=== PATIENT | female | born 1995 | race African-American/Black ===

== ENCOUNTER → 2021-01-11 | Outpatient (CLI) | payer OTHER ==
--- NOTE | 2021-01-11 13:35 | RAD ---
INDICATION: Reason: OLIGOMENORRHEA, ABNORMAL PAP / Spl. Instructions: / History: COMPARISON: None. TECHNIQUE: Grayscale and color ultrasound images uterus and adnexa. Transabdominal and transvaginal images obtained. Transvaginal images were needed to better visualize structures that were limited on transabdominal imaging. FINDINGS: Uterus: 75 x 42 x 31 mm. 4 mm endometrial stripe. Right Ovary: 30 x 26 x 15 mm. Left Ovary: 25 x 15 x 11 mm. Vascular flow identified to bilateral ovaries. Small free fluid in the pelvis. IMPRESSION: * Vascular flow seen to the ovaries. Electronically signed by: Devyn Hi MD (01/11/2021 1:33 PM) [id number]
== END ==
LOC: US 12:50
PROVIDERS: ATTEND Obstetrics & Gynecology
DX: N83.8 Other noninflammatory disorders of ovary, fallopian tube and broad ligament (principal); R87.612 Low grade squamous intraepithelial lesion on cytologic smear of cervix (LGSIL); N91.5 Oligomenorrhea, unspecified
CPT/HCPCS: 76830; 76856

== ENCOUNTER 2021-09-24 14:51 | Emergency (ER) | payer SELFPAY ==
[~2021-09-24] VITALS: Ht 162.6 cm; Wt 85.0 kg
[2021-09-24 14:51] VITALS: BP 144/88
--- NOTE | 2021-09-24 15:23 | PHYS DOC ---
General Adult EDM: Chief Complaint: DENTAL PROBLEM HPI: HPI: Patient is a 26-year-old female who presents with left, lower dental pain. Patient states that pain started a couple of days ago. Patient has not been taking anything at home for discomfort. No signs of swelling or trauma to the area. Patient states that she does not have a dentist. Pain is worse when she drinks and eats food. Patient is eating and drinking okay. Denies medical history. (GUME CEVALLOS APRN) Review of Systems: Review of Systems: ROS At least 10 ROS systems have been reviewed and are negative except as documented in the HPI. General: Negative except as outlined in HPI above. Skin: Negative except as outlined in HPI above. HEENT: Negative except as outlined in HPI above. Neck: Negative except as outlined in HPI above. Respiratory: Negative except as outlined in HPI above.. Cardiovascular: Negative except as outlined in HPI above. Abdomen: Negative except as outlined in HPI above. : Negative except as outlined in HPI above. Back/MSK: Negative except as outlined in HPI above. Neuro: Negative except as outlined in HPI above. Psych: Negative except as outlined in HPI above. (GUME CEVALLOS APRN) Current Medications: Current Meds: Current Medications Medications (Trade) Dose Ordered Sig/Sharlene Start Time Stop Time Status Last Admin Dose Admin Ibuprofen (Motrin) 600 mg 1X ONCE 09/24/21 15:15 09/24/21 15:16 UNV (GUME CEVALLOS APRN) Allergies: Allergies: Allergies Coded Allergies Type Severity Reaction Last Updated Verified No Known Drug Allergies 09/24/21 No (GUME CEVALLOS APRN) Physical Exam: PE: Constitutional: Well developed, well nourished, no acute distress, non-toxic appearance. [] HENT: bilateral external ears normal, oropharynx moist, no oral exudates, left, lower dental pain. No swelling. No signs of trauma. Eyes: PERRLA, EOMI, conjunctiva normal, no discharge. [] Neck: Normal range of motion, no tenderness, supple, no stridor. [] Cardiovascular:Heart rate regular rhythm, no murmur [] Lungs & Thorax: Bilateral breath sounds clear to auscultation [] Abdomen: Bowel sounds normal, soft, no tenderness, no masses, no pulsatile masses. [] Skin: Warm, dry, no erythema, no rash. [] Back: No tenderness, no CVA tenderness. [] Extremities: No tenderness, no cyanosis, no clubbing, ROM intact, no edema. [] Neurologic: Alert and oriented X 3, normal motor function, normal sensory function, no focal deficits noted. [] Psychologic: Affect normal, judgement normal, mood normal. [] (GUME CEVALLOS APRN) EKG: EKG: [] (GUME CEVALLOS APRN) Radiology/Procedures: Radiology/Procedures: [] (UGME CEVALLOS APRN) Heart Score: C/O Chest Pain: No Risk Factors: Risk Factors: DM, Current or recent (<one month) smoker, HTN, HLP, family history of CAD, obesity. Risk Scores: Score 0 - 3: 2.5% MACE over next 6 weeks - Discharge Home Score 4 - 6: 20.3% MACE over next 6 weeks - Admit for Clinical Observation Score 7 - 10: 72.7% MACE over next 6 weeks - Early Invasive Strategies (GUME CEVALLOS APRN) Course & Med Decision Making: Course & Med Decision Making Pertinent Labs and Imaging studies reviewed. (See chart for details) [] Nontoxic-appearing 26-year-old female presents with a left, lower dental pain. Pain started a couple of days ago. Denies taking anything at home. Patient given 600 mg ibuprofen while in the ER to help with pain. No signs of swelling, dental trauma. Afebrile. Advised patient to continue taking ibuprofen and Tylenol at home for pain. Patient given a number for a dentist to follow-up with tomorrow. Discussed return precautions. (GUME CEVALLOS APRN) Dragon Disclaimer: Dragon Disclaimer: This electronic medical record was generated, in whole or in part, using a voice recognition dictation system. (GUME CEVALLOS APRN) Attending Co-Sign The patient was seen and interviewed as well as examined at the bedside. The chart was reviewed. The case was discussed. Agree with the plan of care. (CHOCO OWENS DO) Departure Departure: Impression: Primary Impression: Pain, dental Disposition: HOME / SELF CARE / HOMELESS Condition: STABLE Referrals: RENZO NELSON MD (PCP) Patient Instructions: Dental Pain, [id number] Additional Instructions: You are seen in the emergency room for left lower dental pain. You had no signs of infection. I am giving you pain medication to take to help with discomfort. Continue taking ibuprofen and Tylenol at home for pain. I am also including a dentist phone number for you to contact. Please call in the morning and set up an appointment. You can also purchase Orajel [id number] and apply to the area that is uncomfortable. Return to the emergency room if you have worsening symptoms or concerns. EMERGENCY DEPARTMENT GENERAL DISCHARGE INSTRUCTIONS Thank you for coming to [facility] (ED) today and trusting us with you care. We trust that you had a positivie experience in our Emergency Department. If you wish to speak to the department management, you may call the director at [phone]. YOUR FOLLOW UP INSTRUCTIONS ARE FOLLOWS: 1. Do you have a private Doctor? If you do not have a private doctor, please ask for a resource list of physicians or clinics that may be able to assist you with follow up care. 2. The Emergency Physician has interpreted your x-rays. The X-Ray specialist w ill also review them. If there is a change in the findings, you will be notified in 48 hours when at all possible. 3. A lab test or culture has been done, your results will be reviewed and you will be notified if you need a change in treatment. ADDITIONAL INSTRUCTIONS AND INFORMATION: 1. Your care today has been supervised by a physician who is specially trained in emergency care. Many problems require more than one evaluation for a complete diagnosis and treatment. We recommend that you schedule your follow up appointment as recommended to ensure complete treatment of you illness or injury. If you are unable to obtain follow up care and continue to have a problem, or if your condition worsens, we recommend that you return to the ED. 2. We are not able to safely determine your condition over the phone nor are we able to give sound medical advice over the phone. For these safety reasons, if you call for medical advice we will ask you to come to the ED for further evaluation. 3. If you have any questions regarding these discharge instructions please call the ED at [phone]. SAFETY INFORMATION: In the interest of safety, wellness, and injury prevention; we encourage you to wear your sealbelt, if you smoke; quite smoking, and we encourage family to use a protective helmet for bicycling and other sporting events that present an increased risk for head injury. IF YOUR SYMPTOMS WORSEN OR NEW SYMPTOMS DEVELOP, OR YOU HAVE CONCERNS ABOUT YOUR CONDITION; OR IF YOUR CONDITION WORSENS WHILE YOU ARE WAITING FOR YOUR FOLLOW UP APPOINTMENT; EITHER CONTACT YOUR PRIMARY CARE DOCTOR, THE PHYSICIAN WHOSE NAME AND NUMBER YOU WERE GIVEN, OR RETURN TO THE ED IMMEDIATELY. GUME CEVALLOS APRN Sep 24, 2021 15:22 CHOCO OWENS DO Sep 27, 2021 15:19
[2021-09-24] MEDS: IBUPROFEN 600 MG TABLET. PO ONE (15:29)
== END 2021-09-24 15:30 | disposition home or self-care (01) ==
LOC: ER 14:51
DX: K08.89 Other specified disorders of teeth and supporting structures (principal)
CPT/HCPCS: 99282-25